=== PATIENT | female | born 1975 | race Caucasian/White ===

== ENCOUNTER 2024-07-16 09:26 | Emergency (ER) | payer OTHER ==
[~2024-07-16] VITALS: Ht 162.6 cm; Wt 55.3 kg
[2024-07-16] MEDS ORDERED: METPRE4DP PO (10:00)
[2024-07-16] MEDS ORDERED: HYDROmorphone HCl/Pf 1MG SYR IM ONE (10:00)
== END 2024-07-16 10:26 | disposition home or self-care (01) ==
LOC: ER 09:26
DX: M54.12 Radiculopathy, cervical region (principal); Z79.899 Other long term (current) drug therapy; Z88.5 Allergy status to narcotic agent
CPT/HCPCS: 96372; 99282-25; J1170

== ENCOUNTER 2024-07-31 13:10 | Emergency (ER) | payer OTHER ==
[~2024-07-31] VITALS: Ht 165.1 cm; Wt 56.7 kg
[~2024-07-31 13:10] MED LIST: METPRE4DP PO
[2024-07-31] MEDS ORDERED: Vistaril25 MG PO (13:44)
== END 2024-07-31 13:46 | disposition home or self-care (01) ==
LOC: ER 13:10
DX: F41.9 Anxiety disorder, unspecified (principal); G89.29 Other chronic pain; M54.2 Cervicalgia; Z79.899 Other long term (current) drug therapy; Z88.5 Allergy status to narcotic agent
CPT/HCPCS: 99282

== ENCOUNTER 2024-11-24 15:25 | Emergency (ER) | payer OTHER ==
[~2024-11-24] VITALS: Ht 165.1 cm; Wt 72.6 kg
[~2024-11-24 15:25] MED LIST changes: +Vistaril25 MG PO
== END 2024-11-24 16:50 | disposition home or self-care (01) ==
LOC: ER 15:25
DX: M54.81 Occipital neuralgia (principal); Z79.899 Other long term (current) drug therapy; Z88.5 Allergy status to narcotic agent
CPT/HCPCS: 64405; 99283-25

== ENCOUNTER 2024-11-25 08:23 | Emergency (ER) | payer OTHER ==
[~2024-11-25] VITALS: Ht 162.6 cm; Wt 59.0 kg
[2024-11-26] MEDS ORDERED: LIDO700A20 TOP (00:24)
== END 2024-11-25 10:26 | disposition home or self-care (01) ==
LOC: ER 08:23
DX: M54.81 Occipital neuralgia (principal); Z79.899 Other long term (current) drug therapy; Z88.5 Allergy status to narcotic agent
CPT/HCPCS: 64405; 99283-25

== ENCOUNTER 2024-11-25 20:40 | Emergency (ER) | payer OTHER ==
[~2024-11-25] VITALS: Ht 162.6 cm; Wt 59.0 kg
[2024-11-25 23:17] LABS: BASOPHILS ABSOLUTE AUTO 0.08 K/mm3 (0.00-0.23); BASOPHILS PERCENT AUTO 1 % (0-2); EOSINOPHILS ABSOLUTE AUTO 0.26 K/mm3 (0.00-0.68); EOSINOPHILS PERCENT AUTO 3 % (0-6); Hematocrit 37.5 % (33.0-51.0); Hemoglobin 13.3 g/dL (11.5-16.0); IMMATURE GRAN ABSOLUTE AUTO 0.07 K/mm3 (0.00-0.10); IMMATURE GRAN PERCENT AUTO 1 % (0-1); LYMPHOCYTES ABSOLUTE AUTO 2.19 K/mm3 (0.84-5.20); LYMPHOCYTES PERCENT AUTO 23 % (21-46); MONOCYTES ABSOLUTE AUTO 0.65 K/mm3 (0.16-1.47); MONOCYTES PERCENT AUTO 7 % (4-13); Mean Corpuscular HGB 30.6 pg (26.0-34.0); Mean Corpuscular HGB Conc 35.5 g/dL (31.5-36.5); Mean Corpuscular Volume 86 fL (80-100); Mean Platelet Volume 9.6 fL (9.1-12.4); NEUTROPHILS ABSOLUTE AUTO 6.46 K/mm3 (1.96-9.15); NEUTROPHILS PERCENT AUTO 67 % (41-73); Platelet Count 217 K/mm3 (150-400); RDW Coefficient Variation 12.1 % (11.7-14.2); RDW Standard Deviation 38.5 fL (35.1-46.3); Red Blood Cell Count 4.35 M/mm3 (3.80-5.20); White Blood Cell Count 9.71 K/mm3 (4.00-11.30)
[2024-11-25] MEDS ORDERED: Acetaminophen 500 MG Tab PO ONE (23:25)
[2024-11-25] MEDS ORDERED: Ketorolac Tromethamine 30mg Vial IV ONE (23:25)
[2024-11-25] MEDS ORDERED: NS 1,000 ML IV SCH (23:25)
[2024-11-25] MEDS ORDERED: DiphenhydrAMINE HCl 50 MG/ML 1ML Vial IV ONE (23:25)
[2024-11-25] MEDS ORDERED: Dexamethasone Sod Phos 10 MG/ML 1ML VIAL IV ONE (23:25)
[2024-11-25 23:35] LABS: Albumin, Blood 3.9 g/dL (3.4-5.0); Albumin/Globulin Ratio 1.1 (0.8-1.8); Bilirubin, Total 0.5 mg/dL (0.1-1.0); Bun/Creatinine Ratio 18.5 (12.0-20.0); Calcium, Blood 9.3 mg/dL (8.5-10.1); Creatinine, Blood 0.81 mg/dL (0.40-1.00); Globulin, Blood 3.5 g/dL (2.2-4.0); Potassium, Blood 4.3 mmol/L (3.5-5.5); Total Protein, Blood 7.4 g/dL (6.4-8.2)
[2024-11-26] MEDS ORDERED: LIDO700A20 TOP (00:24)
[2024-11-26] MEDS ORDERED: Lidocaine 4% 1 Patch TOP ONE (00:25)
[2024-11-26] MEDS ORDERED: LORazepam 2 MG/ML 1ML Injection IV ONE (00:35)
[2024-11-27] MEDS ORDERED: Norco 7.5-3251 EACH PO (13:21)
[2024-11-28] MEDS ORDERED: Robaxin750 MG PO (19:43)
[2024-11-28] MEDS ORDERED: REGLAN1013 PO (19:43)
== END 2024-11-26 00:55 | disposition home or self-care (01) ==
LOC: ER 20:40
PROVIDERS: Emergency Medicine
DX: G44.209 Tension-type headache, unspecified, not intractable (principal); F41.9 Anxiety disorder, unspecified; I10 Essential (primary) hypertension; Z88.5 Allergy status to narcotic agent; Z79.899 Other long term (current) drug therapy
CPT/HCPCS: 70450; 80053; 85025; 96374; 96375; 99284-25; A9270; J1100; J1200; J1885; J7030

== ENCOUNTER 2024-11-27 12:06 | Emergency (ER) | payer OTHER ==
[~2024-11-27] VITALS: Ht 162.6 cm; Wt 59.0 kg
[~2024-11-27 12:06] MED LIST changes: +LIDO700A20 TOP
[2024-11-27] MEDS ORDERED: Norco 7.5-3251 EACH PO (13:21)
[2024-11-28] MEDS ORDERED: REGLAN1013 PO (19:43)
[2024-11-28] MEDS ORDERED: Robaxin750 MG PO (19:43)
== END 2024-11-27 13:20 | disposition home or self-care (01) ==
LOC: ER 12:06
DX: M54.12 Radiculopathy, cervical region (principal); Z87.891 Personal history of nicotine dependence; Z79.899 Other long term (current) drug therapy; Z88.5 Allergy status to narcotic agent
CPT/HCPCS: 99283

== ENCOUNTER 2024-11-30 20:42 | Emergency (ER) | payer OTHER ==
[~2024-11-30] VITALS: Ht 162.6 cm; Wt 63.5 kg
[~2024-11-30 20:42] MED LIST changes: +Norco 7.5-3251 EACH PO; +REGLAN1013 PO; +Robaxin750 MG PO
[2024-11-30] MEDS ORDERED: Metoclopramide HCl 5MG / ML 2ML Vial IV ONE (22:05)
[2024-11-30] MEDS ORDERED: Ketorolac Tromethamine 30mg Vial IV ONE (22:05)
[2024-11-30] MEDS ORDERED: NS 1,000 ML IV SCH (22:05)
[2024-12-01] MEDS ORDERED: Diazepam 5 MG / ML 2ML SYR IV ONE (00:20)
[2024-12-01 01:06] LABS: BASOPHILS ABSOLUTE AUTO 0.06 K/mm3 (0.00-0.23); BASOPHILS PERCENT AUTO 1 % (0-2); EOSINOPHILS ABSOLUTE AUTO 0.03 K/mm3 (0.00-0.68); EOSINOPHILS PERCENT AUTO 0 % (0-6); Hemoglobin 14.5 g/dL (11.5-16.0); IMMATURE GRAN ABSOLUTE AUTO 0.11 K/mm3 (0.00-0.10); IMMATURE GRAN PERCENT AUTO 1 % (0-1); LYMPHOCYTES ABSOLUTE AUTO 1.57 K/mm3 (0.84-5.20); LYMPHOCYTES PERCENT AUTO 13 % (21-46); MONOCYTES ABSOLUTE AUTO 0.69 K/mm3 (0.16-1.47); MONOCYTES PERCENT AUTO 6 % (4-13); Mean Corpuscular HGB 30.3 pg (26.0-34.0); Mean Corpuscular HGB Conc 35.4 g/dL (31.5-36.5); Mean Corpuscular Volume 86 fL (80-100); Mean Platelet Volume 9.6 fL (9.1-12.4); NEUTROPHILS ABSOLUTE AUTO 9.83 K/mm3 (1.96-9.15); NEUTROPHILS PERCENT AUTO 80 % (41-73); Platelet Count 245 K/mm3 (150-400); RDW Standard Deviation 37.9 fL (35.1-46.3); Red Blood Cell Count 4.78 M/mm3 (3.80-5.20); White Blood Cell Count 12.29 K/mm3 (4.00-11.30)
[2024-12-01 01:28] LABS: Albumin/Globulin Ratio 1.1 (0.8-1.8); Bilirubin, Total 0.8 mg/dL (0.1-1.0); Bun/Creatinine Ratio 35.2 (12.0-20.0); Calcium, Blood 8.9 mg/dL (8.5-10.1); Creatinine, Blood 0.54 mg/dL (0.40-1.00); Globulin, Blood 3.6 g/dL (2.2-4.0); Potassium, Blood 3.9 mmol/L (3.5-5.5); Total Protein, Blood 7.6 g/dL (6.4-8.2)
[2024-12-01] MEDS ORDERED: HYDCHL12.5 PO (01:37)
[2024-12-01] MEDS ORDERED: Voltaren100 GM TOP (01:37)
== END 2024-12-01 01:30 | disposition home or self-care (01) ==
LOC: ER 20:42
PROVIDERS: Student in an Organized Health Care Education/Training Program
DX: I16.0 Hypertensive urgency (principal); I10 Essential (primary) hypertension; R51.9 Headache, unspecified; Z91.148 Patient's other noncompliance with medication regimen for other reason; Z88.5 Allergy status to narcotic agent; Z79.899 Other long term (current) drug therapy; Z87.891 Personal history of nicotine dependence
CPT/HCPCS: 80053; 85025; 96374; 96375; 99284-25; J1885; J2765; J3360; J7030

== ENCOUNTER 2024-12-03 15:58 | Emergency (ER) | payer OTHER ==
[~2024-12-03] VITALS: Ht 162.6 cm; Wt 61.2 kg
[~2024-12-03 15:58] MED LIST changes: +HYDCHL12.5 PO; +Voltaren100 GM TOP
[2024-12-03 16:35] LABS: BASOPHILS ABSOLUTE AUTO 0.07 K/mm3 (0.00-0.23); BASOPHILS PERCENT AUTO 1 % (0-2); EOSINOPHILS ABSOLUTE AUTO 0.21 K/mm3 (0.00-0.68); EOSINOPHILS PERCENT AUTO 2 % (0-6); Hematocrit 39.5 % (33.0-51.0); Hemoglobin 13.8 g/dL (11.5-16.0); IMMATURE GRAN ABSOLUTE AUTO 0.08 K/mm3 (0.00-0.10); IMMATURE GRAN PERCENT AUTO 1 % (0-1); LYMPHOCYTES ABSOLUTE AUTO 3.06 K/mm3 (0.84-5.20); LYMPHOCYTES PERCENT AUTO 33 % (21-46); MONOCYTES ABSOLUTE AUTO 0.79 K/mm3 (0.16-1.47); MONOCYTES PERCENT AUTO 8 % (4-13); Mean Corpuscular HGB 30.5 pg (26.0-34.0); Mean Corpuscular HGB Conc 34.9 g/dL (31.5-36.5); Mean Corpuscular Volume 87 fL (80-100); Mean Platelet Volume 9.5 fL (9.1-12.4); NEUTROPHILS ABSOLUTE AUTO 5.17 K/mm3 (1.96-9.15); NEUTROPHILS PERCENT AUTO 55 % (41-73); Platelet Count 246 K/mm3 (150-400); RDW Coefficient Variation 12.3 % (11.7-14.2); RDW Standard Deviation 39.4 fL (35.1-46.3); Red Blood Cell Count 4.52 M/mm3 (3.80-5.20); White Blood Cell Count 9.38 K/mm3 (4.00-11.30)
[2024-12-03 17:07] LABS: Albumin, Blood 3.7 g/dL (3.4-5.0); Albumin/Globulin Ratio 1.1 (0.8-1.8); Bilirubin, Total 0.7 mg/dL (0.1-1.0); Calcium, Blood 8.6 mg/dL (8.5-10.1); Creatinine, Blood 1.03 mg/dL (0.40-1.00); Globulin, Blood 3.3 g/dL (2.2-4.0); Potassium, Blood 3.8 mmol/L (3.5-5.5)
[2024-12-03] MEDS ORDERED: Lidocaine 4% 1 Patch TOP ONE (19:45)
[2024-12-03] MEDS ORDERED: DiphenhydrAMINE HCL 25 MG Cap PO ONE (19:45)
[2024-12-03] MEDS ORDERED: Prochlorperazine Maleate 5 MG Tab PO ONE (19:45)
[2024-12-03] MEDS ORDERED: Ketorolac Tromethamine 15mg Vial IM ONE (19:45)
[2024-12-03] MEDS ORDERED: LIDOCAINE1 EACH TOP (19:49)
[2024-12-03] MEDS ORDERED: Robaxin750 MG PO (19:49)
== END 2024-12-03 20:10 | disposition home or self-care (01) ==
LOC: ER 15:58
PROVIDERS: Student in an Organized Health Care Education/Training Program
DX: G44.209 Tension-type headache, unspecified, not intractable (principal); I10 Essential (primary) hypertension; Z88.5 Allergy status to narcotic agent; Z79.899 Other long term (current) drug therapy
CPT/HCPCS: 80053; 85025; 96372; 99284-25; A9270; J1885; Q0164

== ENCOUNTER → 2025-02-14 | Outpatient (CLI) | payer OTHER ==
[~2025-02-14] MED LIST changes: +LIDOCAINE1 EACH TOP
[2025-02-14 19:58] LABS: Bun/Creatinine Ratio 14.5 (12.0-20.0); Calcium, Blood 9.5 mg/dL (8.5-10.1); Creatinine, Blood 0.83 mg/dL (0.40-1.00); Potassium, Blood 4.3 mmol/L (3.5-5.5)
== END ==
LOC: LAB 16:23 → LAB SHORT 16:23
PROVIDERS: Nurse Practitioner Family
DX: M47.816 Spondylosis without myelopathy or radiculopathy, lumbar region (principal)
CPT/HCPCS: 80048

== ENCOUNTER → 2025-09-15 | Outpatient (CLI) | payer OTHER ==
[2025-09-19 14:43] LABS: HPVG SOURCE Cervical
== END | disposition home or self-care (01) ==
LOC: LAB 17:00 → LAB SHORT 17:00
PROVIDERS: Nurse Practitioner Family
DX: Z01.419 Encounter for gynecological examination (general) (routine) without abnormal findings (principal)
CPT/HCPCS: 87624; 87625; G0145

== ENCOUNTER 2025-09-25 11:37 | Day surgery (SDC) | payer OTHER ==
[~2025-09-25] VITALS: Ht 162.6 cm; Wt 64.7 kg
[~2025-09-25 11:37] MED LIST changes: +CeFAZolin Sodium 2,000 MG VIAL ONE
[2025-09-25] MEDS ORDERED: QUETIAPINE FUM300 M3 PO (12:15)
[2025-09-25] MEDS ORDERED: Inderal80 MG (12:16)
[2025-09-25] MEDS ORDERED: Flexeril10 MG PO (12:17)
[2025-09-25] MEDS ORDERED: Prozac20 MG PO (12:38)
[2025-09-25] MEDS ORDERED: Dexamethasone Sod Phos 10 MG/ML 1ML VIAL ONE (12:47)
[2025-09-25] MEDS ORDERED: Midazolam HCl 1MG / ML 2ML Vial ONE (13:36)
[2025-09-25] MEDS ORDERED: FentaNYL Citrate 50 MCG/ML 2 ML Injection ONE (13:58)
--- NOTE | 2025-09-25 14:05 | NUR ---
09/25/25 1405 MELINDA GIBBONS AXILLARY BLOCK W/ DR AYALA O2 100% NC 3L T/O :1345 START BLOCK:1349 END BLOCK: 1352
[2025-09-25] MEDS ORDERED: Ondansetron HCl 2 MG / ML 2ML Vial ONE (14:24)
--- NOTE | 2025-09-25 15:15 | NUR ---
09/25/25 1515 Shanel Perkins LMA REMOVED AT 1513 BY PT
--- NOTE | 2025-09-25 15:35 | NUR ---
09/25/25 1535 Shanel Perkins RN ASSISTED PT TO CHAIR. SISTER AT BEDSIDE. VSS. DENIES PAIN/NAUSEA/DIZZINESS AT THIS TIME.
== END 2025-09-25 15:48 | disposition home or self-care (01) ==
LOC: ORSCSDS 11:37
PROVIDERS: Orthopaedic Surgery
PROC: 0LN50ZZ Release Right Lower Arm and Wrist Tendon, Open Approach (ICD-10-PCS; principal; 2025-09-25 13:30)
PROC: 0RQS0ZZ Repair Right Carpometacarpal Joint, Open Approach (ICD-10-PCS; principal; 2025-09-25 13:30)
PROC: 0LN70ZZ Release Right Hand Tendon, Open Approach (ICD-10-PCS; principal; 2025-09-25 13:30)
PROC: 01N54ZZ Release Median Nerve, Percutaneous Endoscopic Approach (ICD-10-PCS; principal; 2025-09-25 13:30)
DX: M18.11 Unilateral primary osteoarthritis of first carpometacarpal joint, right hand (principal); G56.01 Carpal tunnel syndrome, right upper limb; M65.4 Radial styloid tenosynovitis [de Quervain]; M65.311 Trigger thumb, right thumb; F31.9 Bipolar disorder, unspecified; Z79.899 Other long term (current) drug therapy
CPT/HCPCS: C1713; J0690; J1100; J2250; J2405; J2704; J3010; J7120

== ENCOUNTER 2025-09-26 19:26 | Emergency (ER) | payer OTHER ==
[~2025-09-26] VITALS: Ht 162.6 cm; Wt 64.4 kg
[~2025-09-26 19:26] MED LIST changes: -CeFAZolin Sodium 2,000 MG VIAL ONE; +Flexeril10 MG PO; +Inderal80 MG; +Prozac20 MG PO; +QUETIAPINE FUM300 M3 PO
== END 2025-09-26 20:09 | disposition home or self-care (01) ==
LOC: ER 19:26
DX: T22.211A Burn of second degree of right forearm, initial encounter (principal); X19.XXXA Contact with other heat and hot substances, initial encounter
CPT/HCPCS: 99283; A9270

== ENCOUNTER → 2025-10-14 | Outpatient (CLI) | payer OTHER ==
[~2025-10-14] MED LIST changes: +Atarax10 MG PO; +HYDCHL25 PO; +KETO10 PO
[2025-10-14 20:13] LABS: BASOPHILS ABSOLUTE AUTO 0.06 K/mm3 (0.00-0.23); BASOPHILS PERCENT AUTO 1 % (0-2); EOSINOPHILS ABSOLUTE AUTO 0.12 K/mm3 (0.00-0.68); EOSINOPHILS PERCENT AUTO 2 % (0-6); Hematocrit 41.5 % (33.0-51.0); Hemoglobin 14.3 g/dL (11.5-16.0); IMMATURE GRAN ABSOLUTE AUTO 0.02 K/mm3 (0.00-0.10); IMMATURE GRAN PERCENT AUTO 0 % (0-1); LYMPHOCYTES ABSOLUTE AUTO 2.19 K/mm3 (0.84-5.20); LYMPHOCYTES PERCENT AUTO 35 % (21-46); MONOCYTES ABSOLUTE AUTO 0.45 K/mm3 (0.16-1.47); MONOCYTES PERCENT AUTO 7 % (4-13); Mean Corpuscular HGB Conc 34.5 g/dL (31.5-36.5); Mean Corpuscular Volume 81 fL (80-100); NEUTROPHILS ABSOLUTE AUTO 3.35 K/mm3 (1.96-9.15); NEUTROPHILS PERCENT AUTO 54 % (41-73); NRBC ABSOLUTE 0.00 K/mm3 (0.00-0.02); NRBC Auto 0.0 /100 WBC (0.0-0.2); Platelet Count 277 K/mm3 (150-400); RDW Coefficient Variation 12.6 % (11.7-14.2); RDW Standard Deviation 36.9 fL (35.1-46.3)
[2025-10-14 21:33] LABS: Alanine Aminotransfer (ALT/SGP 50.0 U/L (12-78); Albumin, Blood 4.4 g/dL (3.4-5.0); Albumin/Globulin Ratio 1.3 (0.8-1.8); Anion Gap 9.0 mmol/L (3-11); Aspartate Aminotrans (AST/SGOT 35.0 U/L (12-37); Bilirubin, Total 0.5 mg/dL (0.1-1.0); Blood Urea Nitrogen 14.0 mg/dL (8-24); CO2, Blood 26.0 mmol/L (21-32); Calcium, Blood 9.8 mg/dL (8.5-10.1); Chloride, Blood 105.0 mmol/L (98-108); Creatinine, Blood 0.7 mg/dL (0.40-1.00); Globulin, Blood 3.5 g/dL (2.2-4.0); Glucose, Blood 96.0 mg/dL (70-99); Potassium, Blood 3.6 mmol/L (3.5-5.5); Sodium, Blood 136.0 mmol/L (136-145); Thyroid Stimulating Hormone 2.98 uIU/mL (0.360-4.800); Total Protein, Blood 7.9 g/dL (6.4-8.2)
[2025-10-15 11:44] LABS: Chlamydia Trachomatis Urine NOT DETECTED (NOT DETECT); Neisseria Gonorrhoea Urine NOT DETECTED (NOT DETECT)
[2025-10-16 16:45] LABS: HEPATITIS C AB CIA INTERP Negative (Negative); HEPATITIS C ANTIBODY CIA INDEX 0.03 IV
[2025-10-17 08:20] LABS: HIV 1,2 COMBO ANTIGEN/ANTIBODY Negative (Negative)
== END ==
LOC: LAB SHORT 19:05 → LAB 19:05
PROVIDERS: Nurse Practitioner Family
DX: Z11.59 Encounter for screening for other viral diseases (principal); I10 Essential (primary) hypertension; F41.1 Generalized anxiety disorder; R73.01 Impaired fasting glucose
CPT/HCPCS: 80053; 83036; 84443; 85025; 86592; 86803; 87340; 87389; 87491; 87591